=== PATIENT | female | born 1990 | race Caucasian/White ===

== ENCOUNTER 2019-05-29 14:17 | Emergency (ER) | payer OTHER, MEDICAID, SELFPAY ==
[2019-05-29 14:54] VITALS: BP 96/58; PULSE 69; RESP 18; TEMP 36.8; O2SAT 94
--- NOTE | 2019-05-29 14:59 | DI.US.S_ITS ---
PROCEDURE: US OB <= 14 WEEKS FETUS INDICATIONS: RT PELVIC PAIN, OUTSIDE/PRIOR DATING DATA: Last menstrual period (LMP): 04/01/2019. LMP-based estimated date of delivery (DORI): 12/08/2019. First dating scan (date and location): 05/29/2019. Estimated date of delivery (DORI) from first dating scan: 01/08/2020. TECHNIQUE: Real-time scanning was performed of the fetus and maternal pelvic organs, with image documentation. COMPARISON: None. FINDINGS: Embryo: Riggins living intrauterine . Stephenson-rump length of 1.6 cm. Gestational age 8 weeks 0/7 days. heart rate 165 beats per minute. A yolk sac is seen. No neyda-gestational hemorrhage demonstrated. Measurement variability in dating: +/- 4 weeks by LMP, +/- 7 days by mean sac diameter (use before 6 weeks gestation if crown-rump length not able to be measured), +/- 5 days by crown-rump length (up to 8 weeks 6 days gestation), +/- 7 days by crown-rump length (up to 13 weeks 6 days gestation). Maternal organs: Right ovary is normal in size and appearance. Left ovary is not identified. Limited images through the kidneys demonstrate no hydronephrosis. Cervical length 3.3 cm. Normal uterus. Appendix is not identified. 2 small lymph nodes in the right lower quadrant which are within normal limits. IMPRESSION: 1. Single living intrauterine at 8 weeks 0/7 days based on today's crown-rump length. heart rate 165 bpm. 2. No neyda-gestational hemorrhage demonstrated. No free fluid. 3. Appendix is not identified. No hydronephrosis. Dictated by: Jadon Mccall M.D. on 05/29/2019 at 16:15 Approved by: Jadon Mccall M.D. on 05/29/2019 at 16:21
[2019-05-29 16:12] LABS: Add Manual Diff / Slide Review NO; Basophils Absolute Auto 100 /uL (0-100); Basophils Percent Auto 0.7 % (0-2); Eosinophils Absolute Auto 0 /uL (0-450); Eosinophils Percent Auto 0.4 % (2-4); Hematocrit 40.2 % (36-46); Hemoglobin 14.1 g/dL (12.0-16.0); Lymphocytes Absolute Auto 2000 /uL (1100-4500); Lymphocytes Percent Auto 22.9 % (25-40); Mean Corpuscular Hemoglobin 32.1 PG (26-34); Mean Corpuscular Volume 91.7 fL (80-100); Monocytes Absolute Auto 800 /uL (0-900); Monocytes Percent Auto 9.2 % (3-14); Neutrophils Absolute Auto 6000 /uL (1500-7000); Neutrophils Percent Auto 66.8 % (50-75); Platelet Count 208 X10^3/uL (150-400); Red Blood Cell Count 4.39 X10^6/uL (4.0-5.2); Red Cell Distribution Width 12.7 % (11.6-14.8); White Blood Cell Count 8.9 X10^3/uL (4.5-11.0)
[2019-05-29 16:18] LABS: Alanine Aminotransferase 25 IU/L (9-52); Albumin 4.3 g/dL (3.5-5.0); Albumin Globulin Ratio 1.4 (1.0-2.8); Alkaline Phosphatase 50 U/L (38-126); Aspartate Aminotransferase 24 IU/L (14-36); BUN Creatinine Ratio 27.5 (6-22); Bilirubin Total 0.5 mg/dL (0.2-1.3); Blood Urea Nitrogen 11 mg/dL (7-17); Calcium 9.8 mg/dL (8.4-10.2); Carbon Dioxide 26 mmol/L (22-32); Chloride 100 mmol/L (98-107); Estimated Glomerular Filt Rate > 60.0 mL/min (>60); Globulin 3.1 g/dL (1.7-4.1); Glucose 80 mg/dL (70-100); HEMOLYSIS < 15 (0-50); Potassium 4.1 mmol/L (3.4-5.1); Sodium 135 mmol/L (137-145); Total Protein 7.4 g/dL (6.3-8.2)
[2019-05-29 16:49] LABS: Bacteria Urine None Seen; RBC Urine None Seen (0-5/HPF)
[2019-05-29 16:59] LABS: HCG Quantitative /Beta subunit 141950 mIU/mL
[2019-05-29 17:00] LABS: Culture Indicated Urine Cult Not Indicated; Mucus Urine 3+ (Negative); Squamous Epithelial Cell Urine 0-1 /HPF (0-5/HPF); WBC Urine 0-1/HPF (0-5/HPF)
[2019-05-29] MEDS: ACETAMINOPHEN 325 MG TABLET 975 MG PO (17:22)
[2019-05-29 17:23] VITALS: BP 110/61; PULSE 74; RESP 16; TEMP 35.8; O2SAT 99
--- NOTE | 2019-05-29 19:10 | ED.PREGNANCY ---
HPI - [facility] - Last Filed: 05/29/19 19:14> General Chief complaint: OB/Uterine Contractions Stated complaint: 7-8 wks preg. abd pain, low back pain Time Seen by Provider: 05/29/19 16:37 Source: patient Mode of arrival: ambulatory Limitations: no limitations History of Present Illness HPI Narrative: The patient is a 29-year-old female she is 7-8 weeks presents with a chief complaint of lower back pain. She complains of slight abdominal cramping. She denies any vaginal bleeding, urgency frequency dysuria. She denies any trauma. She states that she has taken a few doses of ibuprofen, which I recommended she not do anymore, for the pain with no effect. She has not taken anything today. She states that the pain has been ongoing for several weeks. She denies any chest pain shortness of breath or fevers. She denies any vomiting or diarrhea. She states she thinks everything is okay, she just wants to make sure. She states she has planned follow-up with an OBGYN shortly. Review of Systems [facility] Last Filed: 05/29/19 19:14> Review of Systems GENERAL: Denies chills, fatigue, malaise, fever, sweats. HEENT: Denies sinus pain, ear pain, sore throat, difficulty swallowing, dizziness. RESPIRATORY: Denies dyspnea, cough, wheezing, hemoptysis, sputum. CARDIOVASCULAR: Denies chest pain, palpitations, orthopnea, edema, GASTROINTESTINAL: Denies nausea, vomiting, abdominal pain, diarrhea, constipation, melena. : Denies dysuria, frequency, incontinence, hematuria, urinary retention. MUSCULOSKELETAL: See HPI SKIN: Denies rash, skin lesions, or other NEUROLOGIC: Denies weakness, headache, numbness, change in speech, confusion, seizures, incoordination. PSYCHIATRIC: No concerning psychosocial issues. 12 point review of systems is negative except for those stated above Exam <[facility] - Last Filed: 05/29/19 19:14> Narrative Exam Narrative: GENERAL: This is a well-nourished, well-developed patient, acute distress HEAD: Atraumatic. Normocephalic. No temporal or scalp tenderness. EYES: Pupils equal round and reactive. Extraocular motions intact. No scleral icterus. No injection or drainage. ENT: Nose without bleeding, purulent drainage or septal hematoma. Throat without erythema, tonsillar hypertrophy or exudate. Uvula midline. Airway patent. NECK: Trachea midline. No JVD or lymphadenopathy. Supple, nontender, no meningeal signs. CARDIOVASCULAR: Regular rate and rhythm without murmurs, gallops, or rubs. RESPIRATORY: Clear to auscultation. Breath sounds equal bilaterally. No wheezes, rales, or rhonchi. No cough. No increased respiratory effort. No accessory muscle use. GASTROINTESTINAL: Abdomen soft, non-tender, nondistended. No hepato-splenomegaly, or palpable masses. No guarding. Active bowel sounds all 4 quadrants. EXTREMITIES: No clubbing, cyanosis, or edema. No joint tenderness, effusion, or edema noted. BACK: Nontender without deformity or crepitance. No flank tenderness. NEURO: AOx3. SKIN: No rash or erythema. Initial Vital Signs Initial Vital Signs: Vital Signs Temperature 98.3 F 05/29/19 14:54 Pulse Rate 69 05/29/19 14:54 Respiratory Rate 18 05/29/19 14:54 Blood Pressure 96/58 L 05/29/19 14:54 Pulse Oximetry 94 05/29/19 14:54 <DO Ronny Estrada Last Filed: 05/30/19 07:49> Initial Vital Signs Initial Vital Signs: Vital Signs Temperature 98.3 F 05/29/19 14:54 Pulse Rate 69 05/29/19 14:54 Respiratory Rate 18 05/29/19 14:54 Blood Pressure 96/58 L 05/29/19 14:54 Pulse Oximetry 94 05/29/19 14:54 Course <PATRICIA Odom-[facility]SI - Last Filed: 05/29/19 19:14> Orders Ordered: Discontinued Medications Acetaminophen (Tylenol) 975 mg PO NOW ONE Stop: 05/29/19 16:55 Last Admin: 05/29/19 17:22 Dose: 975 mg Vital Signs - 8 hr 05/29/19 14:54 05/29/19 17:23 Temperature 98.3 F 96.4 F L Pulse Rate 69 74 Respiratory Rate 18 16 Blood Pressure 96/58 L Blood Pressure [Left Arm] 110/61 Pulse Oximetry 94 99 <DO Ronny Estrada Filed: 05/30/19 07:49> Orders Ordered: Discontinued Medications Acetaminophen (Tylenol) 975 mg PO NOW ONE Stop: 05/29/19 16:55 Last Admin: 05/29/19 17:22 Dose: 975 mg Vital Signs - 8 hr 05/29/19 14:54 05/29/19 17:23 Temperature 98.3 F 96.4 F L Pulse Rate 69 74 Respiratory Rate 18 16 Blood Pressure 96/58 L Blood Pressure [Left Arm] 110/61 Pulse Oximetry 94 99 MDM - OB/Uterine Contractions <CALI Odom - Last Filed: 05/29/19 19:14> Lab Data Result diagrams: 05/29/19 16:00 05/29/19 16:00 Lab Results 05/29/19 05/29/19 05/29/19 Range/Units 16:00 16:00 16:00 WBC 8.9 (4.5-11.0) X10^3/uL RBC 4.39 (4.0-5.2) X10^6/uL Hgb 14.1 (12.0-16.0) g/dL Hct 40.2 (36-46) % MCV 91.7 (80-100) fL MCH 32.1 (26-34) PG MCHC 35.0 (30-36) % RDW 12.7 (11.6-14.8) % Plt Count 208 (150-400) X10^3/uL Neut % (Auto) 66.8 (50-75) % Lymph % (Auto) 22.9 L (25-40) % [place] % (Auto) 9.2 (3-14) % Eos % (Auto) 0.4 L (2-4) % Baso % (Auto) 0.7 (0-2) % Neut # (Auto) 6000 (1906-4174) /uL Lymph # (Auto) 2000 (6395-4247) /uL [place] # (Auto) 800 (0-900) /uL Eos # (Auto) 0 (0-450) /uL Baso # (Auto) 100 (0-100) /uL Sodium 135 L (137-145) mmol/L Potassium 4.1 (3.4-5.1) mmol/L Chloride 100 (98-107) mmol/L Carbon Dioxide 26 (22-32) mmol/L BUN 11 (7-17) mg/dL Creatinine 0.40 L (0.52-1.04) mg/dL Estimated GFR > 60.0 (>60) mL/min BUN/Creatinine Ratio 27.5 H (6-22) Glucose 80 (70-100) mg/dL Calcium 9.8 (8.4-10.2) mg/dL Total Bilirubin 0.5 (0.2-1.3) mg/dL AST 24 (14-36) IU/L ALT 25 (9-52) IU/L Alkaline Phosphatase 50 (38-126) U/L Total Protein 7.4 (6.3-8.2) g/dL Albumin 4.3 (3.5-5.0) g/dL Globulin 3.1 (1.7-4.1) g/dL Albumin/Globulin Ratio 1.4 (1.0-2.8) HCG, Quant 297345 mIU/mL Urine RBC (0-5/HPF) Urine WBC (0-5/HPF) Ur Squamous Epith Cells (0-5/HPF) Urine Bacteria (None) Urine Mucus (Negative) Ur Culture Indicated? Blood Type O Positive 05/29/19 Range/Units 16:30 WBC (4.5-11.0) X10^3/uL RBC (4.0-5.2) X10^6/uL Hgb (12.0-16.0) g/dL Hct (36-46) % MCV (80-100) fL MCH (26-34) PG MCHC (30-36) % RDW (11.6-14.8) % Plt Count (150-400) X10^3/uL Neut % (Auto) (50-75) % Lymph % (Auto) (25-40) % [place] % (Auto) (3-14) % Eos % (Auto) (2-4) % Baso % (Auto) (0-2) % Neut # (Auto) (9943-6616) /uL Lymph # (Auto) (6712-3666) /uL [place] # (Auto) (0-900) /uL Eos # (Auto) (0-450) /uL Baso # (Auto) (0-100) /uL Sodium (137-145) mmol/L Potassium (3.4-5.1) mmol/L Chloride (98-107) mmol/L Carbon Dioxide (22-32) mmol/L BUN (7-17) mg/dL Creatinine (0.52-1.04) mg/dL Estimated GFR (>60) mL/min BUN/Creatinine Ratio (6-22) Glucose (70-100) mg/dL Calcium (8.4-10.2) mg/dL Total Bilirubin (0.2-1.3) mg/dL AST (14-36) IU/L ALT (9-52) IU/L Alkaline Phosphatase (38-126) U/L Total Protein (6.3-8.2) g/dL Albumin (3.5-5.0) g/dL Globulin (1.7-4.1) g/dL Albumin/Globulin Ratio (1.0-2.8) HCG, Quant mIU/mL Urine RBC None seen (0-5/HPF) Urine WBC 0-1/hpf (0-5/HPF) Ur Squamous Epith Cells 0-1 /hpf (0-5/HPF) Urine Bacteria None seen (None) Urine Mucus 3+ H (Negative) Ur Culture Indicated? Cult not indicated Blood Type Urine Dip Bedside Urine Glucose Negative Bedside Urine Bilirubin - Negative Bedside Urine Ketone +/- 5 Urine Specific [place] 1.030 Bedside Urine Occult Blood - Negative Bedside Urine pH 6.0 Bedside Urine Protein +/- 15 Bedside Urine Urobilinogen - Negative Bedside Urine Nitrite - Negative Bedside Urine Leukocytes - Negative Esterase MDM Narrative Medical decision making narrative: The patient is a 29-year-old female who is 8 weeks who presents with a chief complaint of lower back pain. She has not taken anything other than few doses of ibuprofen at home for the pain, which I encouraged her to do. Encouraged to take Tylenol instead. The patient has a normal urinalysis, overall benign labs and a non acute abdominal exam. We discussed conservative measures such as Tylenol, heat and/or ice and encouraged follow-up with PCP. Discussed coming back to the ER for any acute concerns such as severe vaginal bleeding etc. Patient has no questions or concerns upon discharge. She was given Tylenol in the emergency department. <Ilana Cross, - Last Filed: 05/30/19 07:49> Lab Data Lab Results 05/29/19 05/29/19 05/29/19 Range/Units 16:00 16:00 16:00 WBC 8.9 (4.5-11.0) X10^3/uL RBC 4.39 (4.0-5.2) X10^6/uL Hgb 14.1 (12.0-16.0) g/dL Hct 40.2 (36-46) % MCV 91.7 (80-100) fL MCH 32.1 (26-34) PG MCHC 35.0 (30-36) % RDW 12.7 (11.6-14.8) % Plt Count 208 (150-400) X10^3/uL Neut % (Auto) 66.8 (50-75) % Lymph % (Auto) 22.9 L (25-40) % [place] % (Auto) 9.2 (3-14) % Eos % (Auto) 0.4 L (2-4) % Baso % (Auto) 0.7 (0-2) % Neut # (Auto) 6000 (7357-9658) /uL Lymph # (Auto) 2000 (1049-6838) /uL [place] # (Auto) 800 (0-900) /uL Eos # (Auto) 0 (0-450) /uL Baso # (Auto) 100 (0-100) /uL Sodium 135 L (137-145) mmol/L Potassium 4.1 (3.4-5.1) mmol/L Chloride 100 (98-107) mmol/L Carbon Dioxide 26 (22-32) mmol/L BUN 11 (7-17) mg/dL Creatinine 0.40 L (0.52-1.04) mg/dL Estimated GFR > 60.0 (>60) mL/min BUN/Creatinine Ratio 27.5 H (6-22) Glucose 80 (70-100) mg/dL Calcium 9.8 (8.4-10.2) mg/dL Total Bilirubin 0.5 (0.2-1.3) mg/dL AST 24 (14-36) IU/L ALT 25 (9-52) IU/L Alkaline Phosphatase 50 (38-126) U/L Total Protein 7.4 (6.3-8.2) g/dL Albumin 4.3 (3.5-5.0) g/dL Globulin 3.1 (1.7-4.1) g/dL Albumin/Globulin Ratio 1.4 (1.0-2.8) HCG, Quant 864646 mIU/mL Urine RBC (0-5/HPF) Urine WBC (0-5/HPF) Ur Squamous Epith Cells (0-5/HPF) Urine Bacteria (None) Urine Mucus (Negative) Ur Culture Indicated? Blood Type O Positive 05/29/19 Range/Units 16:30 WBC (4.5-11.0) X10^3/uL RBC (4.0-5.2) X10^6/uL Hgb (12.0-16.0) g/dL Hct (36-46) % MCV (80-100) fL MCH (26-34) PG MCHC (30-36) % RDW (11.6-14.8) % Plt Count (150-400) X10^3/uL Neut % (Auto) (50-75) % Lymph % (Auto) (25-40) % [place] % (Auto) (3-14) % Eos % (Auto) (2-4) % Baso % (Auto) (0-2) % Neut # (Auto) (4338-6017) /uL Lymph # (Auto) (2068-4143) /uL [place] # (Auto) (0-900) /uL Eos # (Auto) (0-450) /uL Baso # (Auto) (0-100) /uL Sodium (137-145) mmol/L Potassium (3.4-5.1) mmol/L Chloride (98-107) mmol/L Carbon Dioxide (22-32) mmol/L BUN (7-17) mg/dL Creatinine (0.52-1.04) mg/dL Estimated GFR (>60) mL/min BUN/Creatinine Ratio (6-22) Glucose (70-100) mg/dL Calcium (8.4-10.2) mg/dL Total Bilirubin (0.2-1.3) mg/dL AST (14-36) IU/L ALT (9-52) IU/L Alkaline Phosphatase (38-126) U/L Total Protein (6.3-8.2) g/dL Albumin (3.5-5.0) g/dL Globulin (1.7-4.1) g/dL Albumin/Globulin Ratio (1.0-2.8) HCG, Quant mIU/mL Urine RBC None seen (0-5/HPF) Urine WBC 0-1/hpf (0-5/HPF) Ur Squamous Epith Cells 0-1 /hpf (0-5/HPF) Urine Bacteria None seen (None) Urine Mucus 3+ H (Negative) Ur Culture Indicated? Cult not indicated Blood Type Urine Dip Bedside Urine Glucose Negative Bedside Urine Bilirubin - Negative Bedside Urine Ketone +/- 5 Urine Specific [place] 1.030 Bedside Urine Occult Blood - Negative Bedside Urine pH 6.0 Bedside Urine Protein +/- 15 Bedside Urine Urobilinogen - Negative Bedside Urine Nitrite - Negative Bedside Urine Leukocytes - Negative Esterase Discharge Plan Departure Patient Disposition: Home Clinical Impression: Low back pain Qualifiers: Chronicity: acute Back pain laterality: bilateral Sciatica presence: without sciatica Qualified Code(s): M54.5 - Low back pain Discharge Date/Time: 05/29/19 17:33 Interventions: ED Discharge Assessment Last Done: 05/29/19 17:32 Instructions: DI for Low Back Pain, DI for Abdominal Pain -- Early Activity Restrictions/Additional Instructions: Your urinalysis was normal today. Your ultrasound was also normal. I suggest conservative measures such as Tylenol, ice and/ or heat. Please follow up with primary care provider. Come back to emergency department for any acute concerns such as incontinence bowel, incontinence of bladder numbness in her groin, severe vaginal bleeding etc Referrals: Sara Broussard MD [Primary Care Provider] - <Ilana Cross DO - Last Filed: 05/30/19 07:49> Cosign ED Attending Keisha Attestation: I was immediately available in the department for consultation. Documentation has been reviewed. I agree with assessment and plan.
== END 2019-05-29 17:33 | disposition home or self-care (01) ==
PROVIDERS: Emergency Medicine; Emergency Provider Nurse Practitioner Family; PCP Family Medicine
DX: M54.5 Low back pain (principal)
CPT/HCPCS: 36415; 76801; 80053; 81003; 81015; 84702; 85025; 86900; 86901; 99282; 99284

== ENCOUNTER → 2019-08-11 12:16 | Outpatient (CLI) | payer OTHER, MEDICAID, SELFPAY ==
--- NOTE | 2019-08-11 | DI.US.S_ITS ---
PROCEDURE: US OB >= 14 WEEKS FETUS INDICATIONS: 20 WK ANATOMICAL SCAN OUTSIDE/PRIOR DATING DATA: Last menstrual period (LMP): 04/01/2019. LMP-based estimated date of delivery (DORI): 12/08/2019. First dating scan (date and location): 05/29/2019. Estimated date of delivery (DORI) from first dating scan: 01/08/2020. TECHNIQUE: Real-time scanning was performed of the fetus, with image documentation and biometric measurements. Endovaginal scanning: No COMPARISON: [facility], OB <= 14 WEEKS FETUS, 05/29/2019, 15:12. FINDINGS: General: A single living intrauterine gestation is present. Presentation: Vertex. Placenta: Placental position is posterior, without previa. Amniotic fluid index: 11.3 cm, normal range is 5-24 cm. heart rate: 147 beats per minute. Maternal cervical canal: 3.5 cm long. Normal lower limit is 2.5 cm. biometrics: Biparietal diameter: 18 weeks 6 days Head circumference: 18 weeks 4 days Abdominal circumference: 18 weeks 5 days Femur length: 18 weeks 4 days Estimated gestational age from initial scan: 18 weeks 4 days Composite gestational age from present scan: 18 weeks 4 days Estimated weight and percentile: 250 g; 50th percentile Measurement variability for biometric dating: +/- 7 days from 14 weeks to 15 weeks 6 days gestation, +/- 10 days from 16 weeks to 21 weeks 6 days gestation, +/- 2 weeks from 22 weeks to 27 weeks 6 days gestation, +/- 3 weeks for 28 weeks gestation or later. weight reference: 4500 g or EFW >90/95% is considered macrosomia or large for gestational age. EFW <10% is small for gestational age. EFW 5% or less is considered intra-uterine growth restriction. Anatomic survey: Neuro: Ventricles are non-dilated at less than 10 mm. Cisterna magna is normal at 3-11 mm. Cerebellum is normal in size and morphology. Nuchal skin fold: Normal at less than 6 mm between 14-21 weeks gestational age. Face: Not well-visualized. Spine: No evidence for spina bifida. Heart: Not well-visualized. Diaphragm: Not well-visualized. Stomach: Left-sided stomach is present. Kidneys: No hydronephrosis. Normal is less than 5 mm in 2nd trimester, less than 7 mm in 3rd trimester. Cord: 2-vessel cord has orthotopic insertion. Bladder: Normal in size. Extremities: All 4 extremities identified. IMPRESSION: 1. Riggins living intrauterine at 18 weeks 4/7 days based on today's ultrasound. This is concordant with the prior ultrasound. 2. Normal placenta and amniotic fluid. 3. A 2 vessel umbilical cord is present. Limited anatomic assessment. face, heart and diaphragm are not well seen. Followup ultrasound recommended. Dictated by: Volodymyr Snell [facility] Interpreted: Jadon Mccall MD on 08/11/2019 at 14:05 Approved by: Jadon Mccall M.D. on 08/11/2019 at 15:37
== END ==
PROVIDERS: PCP Family Medicine; Visit Provider Family Medicine
DX: Z36.89 Encounter for other specified antenatal screening (principal); Z3A.18 18 weeks gestation of pregnancy
CPT/HCPCS: 76811

== ENCOUNTER → 2019-08-28 11:40 | Outpatient (CLI) | payer OTHER, MEDICAID, SELFPAY ==
--- NOTE | 2019-08-28 | DI.US.S_ITS ---
PROCEDURE: US OB FOLLOW UP INDICATIONS: REEVALUATE FACE, HEART AND DIAPHRAGM OUTSIDE/PRIOR DATING DATA: Last menstrual period (LMP): 04/01/2019. LMP-based estimated date of delivery (DORI): 12/08/2019. First dating scan (date and location): 05/29/2019. Estimated date of delivery (DORI) from first dating scan: 01/08/2020. TECHNIQUE: Real-time scanning was performed of the fetus, with image documentation and biometric measurements. COMPARISON: [facility], OB >= 14 WEEKS FETUS, 08/11/2019, 12:43. FINDINGS: General: A single living intrauterine gestation is present. Presentation: Breech. Placenta: Placental position is posterior, without previa. Amniotic fluid index: 14.1 cm, normal range is 5-24 cm. heart rate: 141 beats per minute. Maternal cervical canal: 3.4 cm long. Normal lower limit is 2.5 cm. Normal appearance of the diaphragm, face, 4 chamber heart and cardiac outflow tracts. IMPRESSION: 1. Single living IUP redemonstrated and today's exam demonstrate a normal appearance of the diaphragm, face, 4 chamber heart and cardiac outflow tract. Dictated by: Volodymyr BLANCHARD Interpreted: Madi Scott MD on 08/28/2019 at 15:42 Approved by: Madi Scott M.D. on 08/28/2019 at 16:41
== END ==
PROVIDERS: PCP Family Medicine; Visit Provider Family Medicine
DX: Z36.2 Encounter for other antenatal screening follow-up (principal)
CPT/HCPCS: 76816

== ENCOUNTER → 2019-09-18 13:51 | Outpatient (CLI) | payer OTHER, MEDICAID, SELFPAY ==
--- NOTE | 2019-09-18 | DI.US.S_ITS ---
PROCEDURE: US OB LIMITED INDICATIONS: UTERINE PAIN SIZE GREATER THAN DATES OUTSIDE/PRIOR DATING DATA: Last menstrual period (LMP): 04/01/2019. LMP-based estimated date of delivery (DORI): 12/08/2019. First dating scan (date and location): 05/29/2019. Estimated date of delivery (DORI) from first dating scan: 01/08/2020. TECHNIQUE: Real-time scanning was performed of the fetus, with image documentation and biometric measurements. COMPARISON: None. FINDINGS: General: A single living intrauterine gestation is present. Presentation: Vertex. Placenta: Placental position is posterior, without previa. Amniotic fluid index: 21 cm, normal range is 5-24 cm. heart rate: 155 beats per minute. Maternal cervical canal: 3.4 cm long. Normal lower limit is 2.5 cm. biometrics: Biparietal diameter: 24 weeks 2 days Head circumference: 23 weeks 6 days Abdominal circumference: 24 weeks Femur length: 25 weeks Estimated gestational age from initial scan: 24 weeks 0 days Composite gestational age from present scan: 24 weeks 3 days Estimated weight and percentile: 688 g, 58 percentile Measurement variability for biometric dating: +/- 7 days from 14 weeks to 15 weeks 6 days gestation, +/- 10 days from 16 weeks to 21 weeks 6 days gestation, +/- 2 weeks from 22 weeks to 27 weeks 6 days gestation, +/- 3 weeks for 28 weeks gestation or later. weight reference: 4500 g or EFW >90/95% is considered macrosomia or large for gestational age. EFW <10% is small for gestational age. EFW 5% or less is considered intra-uterine growth restriction. Other: Not applicable. IMPRESSION: 1. Single living IUP redemonstrated and interval growth is normal. Dictated by: Volodymyr BLANCHARD Interpreted: Emilio Bansal MD on 09/18/2019 at 16:43 Approved by: Emilio Bansal M.D. on 09/19/2019 at 9:11
== END ==
PROVIDERS: PCP Family Medicine; Visit Provider Family Medicine
DX: Z36.88 Encounter for antenatal screening for fetal macrosomia (principal); O26.892 Other specified pregnancy related conditions, second trimester; N94.89 Other specified conditions associated with female genital organs and menstrual cycle; Z3A.24 24 weeks gestation of pregnancy
CPT/HCPCS: 76815

== ENCOUNTER 2019-11-02 10:55 | Outpatient (CLI) | payer OTHER, MEDICAID, SELFPAY | END 2019-11-02 11:53 | disposition home or self-care (01) | LOC: LABOR 11:22 → OB 11-03 09:19 | PROVIDERS: PCP Family Medicine; Visit Provider Family Medicine | DX: O43.893 Other placental disorders, third trimester (principal); Z3A.30 30 weeks gestation of pregnancy | CPT/HCPCS: 59025; G0378; G0379 ==

== ENCOUNTER 2019-11-14 16:32 | Outpatient (CLI) | payer OTHER, MEDICAID, SELFPAY ==
[2019-11-14 17:50] LABS: RBC Urine None Seen (0-5/HPF); WBC Urine None Seen (0-5/HPF)
[2019-11-14 17:53] LABS: Appearance Urine UA CLEAR; Bilirubin Urine UA NEGATIVE (NEGATIVE); Color Urine UA YELLOW; Glucose Urine UA NEGATIVE (Negative); Ketones Urine UA NEGATIVE (NEGATIVE); Leukocyte Esterase Urine UA NEGATIVE (NEGATIVE); Nitrite Urine UA NEGATIVE (Negative); Occult Blood Urine UA NEGATIVE (Negative); Protein Urine UA NEGATIVE (Negative); Specific Gravity Urine UA <=1.005 (1.000-1.035); Urobilinogen Urine UA 0.2 E.U./dL (0.2)
[2019-11-14 18:03] LABS: pH Urine UA 6.5 (4.5-8.0)
[2019-11-14 18:04] LABS: Bacteria Urine Occasional (0-1); Culture Indicated Urine Cult Not Indicated; Squamous Epithelial Cell Urine 0-1 /HPF (0-5/HPF)
== END 2019-11-14 18:00 | disposition home or self-care (01) ==
LOC: OB 11-15 12:57
PROVIDERS: PCP Family Medicine; Referring Provider Family Medicine; Visit Provider Family Medicine
DX: O47.03 False labor before 37 completed weeks of gestation, third trimester (principal); O26.893 Other specified pregnancy related conditions, third trimester; Z3A.32 32 weeks gestation of pregnancy
CPT/HCPCS: 59025; 81001; G0378; G0379

== ENCOUNTER 2019-11-23 09:28 | Outpatient (CLI) | payer OTHER, MEDICAID, SELFPAY | END 2019-11-23 10:36 | disposition home or self-care (01) | LOC: LABOR 10:23 → OB 11-24 10:20 | PROVIDERS: PCP Family Medicine; Referring Provider Family Medicine; Visit Provider Family Medicine | DX: O35.8XX0 Maternal care for other (suspected) fetal abnormality and damage, not applicable or unspecified (principal); O99.333 Smoking (tobacco) complicating pregnancy, third trimester; Z3A.33 33 weeks gestation of pregnancy | CPT/HCPCS: 59025; G0378; G0379 ==

== ENCOUNTER 2019-11-28 11:46 | Outpatient (CLI) | payer OTHER, MEDICAID, SELFPAY ==
--- NOTE | 2019-11-28 12:08 | DI.US.S_ITS ---
PROCEDURE: OB LIMITED INDICATIONS: YONY, SIZE, AND HEALTH OF PLACENTA OUTSIDE/PRIOR DATING DATA: Last menstrual period (LMP): . LMP-based estimated date of delivery (DORI): 01/06/20. First dating scan (date and location): 05/29/19. Estimated date of delivery (DORI) from first dating scan: 01/08/20. TECHNIQUE: Real-time scanning was performed of the fetus, with image documentation. Endovaginal scanning: Not needed COMPARISON: [facility], OB FOLLOW UP, 08/28/2019, 12:07. [facility] OB >= 14 WEEKS FETUS, 08/11/2019, 12:43. [facility] OB <= 14 WEEKS FETUS, 05/29/2019, 15:12. [facility] OB LIMITED, 09/18/2019, 14:12. FINDINGS: A single living intrauterine gestation is present. Presentation: Vertex Placenta: Placental position is posterior fundal, without previa. Amniotic fluid index: 19.7 cm, normal range is 5-24 cm. heart rate: 153 beats per minute. Estimated gestational age from initial scan: 34 weeks 1 day. Next biometry is internally consistent with a current gestational age of 34 weeks 1 day with weight 2311 g, at the 38th percentile for current gestational age. BPD 8.5 cm, 34 weeks 1 day. Head circumference 30.9 cm, 34 weeks 4 days. Abdominal circumference 29.5 cm, 33 weeks 3 days. Femur length 6.7 cm, 34 weeks 4 days. IMPRESSION: Single living intrauterine gestation with appropriate interval growth and no anomaly identified. The delivery date is projected to be centered on 01/08/20. Dictated by: Emilio Bansal M.D. on 11/28/2019 at 13:04 Approved by: Emilio Bansal M.D. on 11/28/2019 at 13:07
== END 2019-11-28 14:00 | disposition home or self-care (01) ==
LOC: LABOR 13:28 → OB 11-29 10:32
PROVIDERS: PCP Family Medicine; Referring Provider Family Medicine; Visit Provider Family Medicine
DX: O26.893 Other specified pregnancy related conditions, third trimester (principal); R10.30 Lower abdominal pain, unspecified; O35.8XX0 Maternal care for other (suspected) fetal abnormality and damage, not applicable or unspecified; O99.333 Smoking (tobacco) complicating pregnancy, third trimester; Z3A.34 34 weeks gestation of pregnancy
CPT/HCPCS: 59025; 76815; G0378; G0379

== ENCOUNTER 2019-12-04 09:20 | Outpatient (CLI) | payer OTHER, MEDICAID, SELFPAY | END 2019-12-04 10:41 | disposition home or self-care (01) | LOC: LABOR 10:33 → OB 16:50 | PROVIDERS: PCP Family Medicine; Referring Provider Family Medicine; Visit Provider Family Medicine | DX: O35.8XX0 Maternal care for other (suspected) fetal abnormality and damage, not applicable or unspecified (principal); O99.333 Smoking (tobacco) complicating pregnancy, third trimester; Z3A.35 35 weeks gestation of pregnancy | CPT/HCPCS: 59025; G0378; G0379 ==

== ENCOUNTER 2019-12-10 16:54 | Outpatient (CLI) | payer OTHER, MEDICAID, SELFPAY | END 2019-12-10 18:45 | disposition home or self-care (01) | LOC: OB 12-11 10:50 | PROVIDERS: PCP Family Medicine; Referring Provider Student in an Organized Health Care Education/Training Program; Visit Provider Student in an Organized Health Care Education/Training Program | DX: O35.8XX0 Maternal care for other (suspected) fetal abnormality and damage, not applicable or unspecified (principal); O47.03 False labor before 37 completed weeks of gestation, third trimester; O99.333 Smoking (tobacco) complicating pregnancy, third trimester; N89.8 Other specified noninflammatory disorders of vagina; Z3A.36 36 weeks gestation of pregnancy | CPT/HCPCS: 59025; 84112; G0378; G0379 ==

== ENCOUNTER → 2019-12-12 14:47 | Outpatient (ROUT) | payer OTHER, MEDICAID, SELFPAY | PROVIDERS: PCP Family Medicine; Visit Provider Family Medicine | DX: Z34.80 Encounter for supervision of other normal pregnancy, unspecified trimester (principal) | CPT/HCPCS: 87081 ==

== ENCOUNTER 2019-12-19 12:56 | Outpatient (CLI) | payer OTHER, MEDICAID, SELFPAY | END 2019-12-19 13:57 | disposition home or self-care (01) | LOC: OB 12-21 08:22 | PROVIDERS: PCP Family Medicine; Referring Provider Family Medicine; Visit Provider Family Medicine | DX: O35.8XX0 Maternal care for other (suspected) fetal abnormality and damage, not applicable or unspecified (principal); O99.333 Smoking (tobacco) complicating pregnancy, third trimester; Z3A.37 37 weeks gestation of pregnancy | CPT/HCPCS: 59025; 76815; G0378; G0379 ==

== ENCOUNTER → 2019-12-19 12:58 | Outpatient (CLI) | payer OTHER, MEDICAID, SELFPAY ==
--- NOTE | 2019-12-19 | DI.US.S_ITS ---
PROCEDURE: US OB LIMITED INDICATIONS: 2V CORD OUTSIDE/PRIOR DATING DATA: Last menstrual period (LMP): . LMP-based estimated date of delivery (DORI): 01/06/20. First dating scan (date and location): 05/29/19. Estimated date of delivery (DORI) from first dating scan: 01/08/20. TECHNIQUE: Real-time scanning was performed of the fetus, with image documentation and biometric measurements. Endovaginal scanning: No COMPARISON: [facility], OB LIMITED, 11/28/2019, 12:34. FINDINGS: General: A single living intrauterine gestation is present. Presentation: Vertex. Placenta: Placental position is posterior fundal, without previa. Amniotic fluid index: 14.3 cm, normal range is 5-24 cm. heart rate: 155 beats per minute. Maternal cervical canal: Not well-seen. biometrics: Biparietal diameter: 35 weeks 2 days Head circumference: 34 weeks 3 days Abdominal circumference: 36 weeks 4 days Femur length: 38 weeks 2 days Estimated gestational age from initial scan: 37 weeks 1 day Composite gestational age from present scan: 36 weeks 1 day Estimated weight and percentile: 2991 g, 43rd percentile Measurement variability for biometric dating: +/- 7 days from 14 weeks to 15 weeks 6 days gestation, +/- 10 days from 16 weeks to 21 weeks 6 days gestation, +/- 2 weeks from 22 weeks to 27 weeks 6 days gestation, +/- 3 weeks for 28 weeks gestation or later. weight reference: 4500 g or EFW >90/95% is considered macrosomia or large for gestational age. EFW <10% is small for gestational age. EFW 5% or less is considered intra-uterine growth restriction. Other: Not applicable. IMPRESSION: Normal interval growth. Dictated by: Volodymyr BLANCHARD Interpreted: Emilio Bansal MD on 12/19/2019 at 16:50 Approved by: Emilio Bansal M.D. on 12/19/2019 at 18:22
== END ==
PROVIDERS: PCP Family Medicine; Referring Provider Family Medicine; Visit Provider Family Medicine
DX: Q27.0 Congenital absence and hypoplasia of umbilical artery (principal); Z3A.36 36 weeks gestation of pregnancy
CPT/HCPCS: 76815

== ENCOUNTER 2019-12-27 09:12 | Outpatient (CLI) | payer OTHER, MEDICAID, SELFPAY | END 2019-12-27 10:00 | disposition home or self-care (01) | LOC: LABOR 09:28 → OB 12-28 14:34 | PROVIDERS: PCP Family Medicine; Referring Provider Family Medicine; Visit Provider Family Medicine | DX: O35.8XX0 Maternal care for other (suspected) fetal abnormality and damage, not applicable or unspecified (principal); Z3A.38 38 weeks gestation of pregnancy | CPT/HCPCS: 59025; G0378; G0379 ==

== ENCOUNTER 2020-01-02 10:38 | Outpatient (CLI) | payer OTHER, MEDICAID, SELFPAY | END 2020-01-02 11:25 | disposition home or self-care (01) | LOC: LABOR 10:49 → OB 01-04 08:59 | PROVIDERS: PCP Family Medicine; Referring Provider Family Medicine; Visit Provider Family Medicine | DX: O35.8XX0 Maternal care for other (suspected) fetal abnormality and damage, not applicable or unspecified (principal); Z3A.39 39 weeks gestation of pregnancy | CPT/HCPCS: 59025; G0378; G0379 ==

== ENCOUNTER 2020-01-05 08:07 | Inpatient (IN) | payer OTHER, MEDICAID, SELFPAY ==
[2020-01-05] MEDS: LACTATED RINGERS 1,000 ML 100 ML IV (09:07)
[2020-01-05] MEDS: OXYTOCIN PREMIX 30 UNIT/500 ML PLAST..BAG IV (09:07)
[2020-01-05 09:20] LABS: Add Manual Diff / Slide Review NO; Basophils Absolute Auto 100 /uL (0-100); Basophils Percent Auto 1.1 % (0-2); Eosinophils Absolute Auto 0 /uL (0-450); Eosinophils Percent Auto 0.3 % (2-4); Hematocrit 37.1 % (36-46); Hemoglobin 12.5 g/dL (12.0-16.0); Lymphocytes Absolute Auto 1900 /uL (1100-4500); Lymphocytes Percent Auto 25.3 % (25-40); Mean Corpuscular HGB Conc 33.6 % (30-36); Mean Corpuscular Hemoglobin 29.8 PG (26-34); Mean Corpuscular Volume 88.4 fL (80-100); Monocytes Absolute Auto 700 /uL (0-900); Monocytes Percent Auto 9.2 % (3-14); Neutrophils Absolute Auto 4800 /uL (1500-7000); Neutrophils Percent Auto 64.1 % (50-75); Platelet Count 189 X10^3/uL (150-400); Red Cell Distribution Width 13.2 % (11.6-14.8); White Blood Cell Count 7.4 X10^3/uL (4.5-11.0)
[2020-01-05 12:19] VITALS: BP 112/80
--- NOTE | 2020-01-05 15:14 | PM.OBPRVD ---
Labor & Delivery Delivery date: 01/05/20 Intrapartal events: None Cervical ripening method: none Induction method: per pitocin protocol Delivery augmentation: pitocin Delivery monitor: external FHT and external uterine Route of delivery: L&D Laceration Description: Perineal - 1st Degree and Labial Delivery repair: chromic Estimated blood loss (mL): 200 Anesthesia type: None Complications: mild shoulder dystocia suprapubic pressure resolved Narrative: ID: 29 yo 39 and 6 7th weeks estimated gestational age who is brought in for induction due to 2 vessel cord. Otherwise patient had unremarkable . Nuchal translucency was normal and MS AFP was normal. Patient did not have sequential screen. Growth was normal and fluid normal. GBS negative. Rh positive. Status post Tdap and flu shot. Glucose tolerance test normal Stage I: 2 hours and 42 minutes Pitocin was started and patient had immediate response to this. Maximum dose was 12 milliunits of Pitocin. Patient had progressive of pain in uterine contractions and handle the pain without any difficulty. Artificial rupture membranes was contemplated but she continued to progress without this having regular uterine contractions with affective cervical change. She was found to be complete at 2:06 p.m. and wanting to push. She had spontaneous rupture membranes of clear fluid at 2:09 p.m. which was 4 minutes prior to delivery. At the time I presented she was involuntarily pushing and baby's head was starting to crown. External heart monitor was used throughout this stage with a baseline in the 120s to 130s with moderate variability, category 1 tracing. She had 1 period of decelerations when on examining her when she was 4-5 cm dilated and she was on her back for several minutes. Baby quickly recovered with good variability. No other significant decelerations were noted. External tocometer showed regular contractions every 2-3 minutes and Pitocin was turned down to 9 milliunits because of frequency of contractions. Also because of maternal discomfort. Stage II lasted 7 minutes Resulted in the normal spontaneous vaginal delivery of a viable female his weight is pending. Apgars were 7 at 1 minute 9 at 5 minutes. Baby was in the JOE presentation. There was a mild shoulder dystocia which was less than 1 minute which was reduced with getting legs back and suprapubic pressure part of this was because patient does not have epidural anesthesia and was closing her legs together after the head came out. The anterior shoulder was delivered and then quickly the posterior shoulder and body. It was necessary to put my hands under the baby's arms and p pole and still some difficulty with delivery of the abdomen. Baby was placed on mom's chest. There was mild terminal meconium. Then be baby quickly became vigorous. No additional resuscitation other than drying and stimulating were done. S stage III lasted 7 minutes Resulted in the normal spontaneous vaginal delivery of an intact small placenta with central cord insertion and 2 vessel cord present. There were no abnormalities. There were no lacerations of the cervix or the vagina. Blood loss was 200 cc. Pitocin was run in after delivery of the placenta. Patient had a superior right labial first-degree laceration that was repaired and usual fashion. There was a small first-degree perineal laceration that was repaired as well. At the time this dictation both mom and baby are doing well and are in stable condition Plan for aftercare: routine
[2020-01-05] MEDS: ACYCLOVIR 400 MG TABLET PO (21:05)
[2020-01-05] MEDS: IBUPROFEN 600 MG TABLET PO (21:05)
[2020-01-06] MEDS: IBUPROFEN 600 MG TABLET PO ×2 (05:25→11:54)
[2020-01-06] MEDS: ACYCLOVIR 400 MG TABLET PO (09:40)
[2020-01-06] MEDS: PRENATAL VIT,CALC/IRON/FOLIC 1 TABLET 1 TAB PO (09:40)
--- NOTE | 2020-01-06 14:11 | PM.OBHP.1 ---
OB HPI History of Present Condition Chief complaint: maternity Narrative: Valeri Roe is a 29 year old female presents to labor and delivery for induction due to 2 vessel cord and 39 and 6 7 weeks estimated gestational age based on LMP and 1st trimester ultrasound. EDC of 01/06/2020. Patient has had mucus discharge she states is her mucous plug. She has had intermittent uterine contractions. She has had no leaking of fluid. She has had no headache. No significant swelling Past OB history is remarkable for 1. 08/19/2011 at 36 weeks gestation normal spontaneous vaginal delivery of a viable female infant weighing 4 lb 7 oz. Her name is liz up. 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 This was in [place]. No anesthesia. 2. 06/02/2014 at 39 weeks gestation normal spontaneous vaginal delivery of a viable male weighing 6 lb 11 oz, this was in [place] as well. His name is knee on and no complications Past medical history: 1. HSV 2 Medications: Valacyclovir 40 mg daily vitamin 1 daily Allergies no known drug allergies Past surgical history unremarkable OB care was begun early on. Patient had a total of 14 visits. Patient had 49 lb weight gain. Blood pressures were good 106-120/50-74 Patient had genetic counseling and nuchal translucency was normal so she decided against 6 sequential screen. She did have the MS AFP which was normal. She had a 20 week ultrasound that was completely normal anatomy except for a 2 vessel cord. She was monitored heard with and STs once weekly starting at 32 weeks and ultrasounds for growth and fluid and no abnormalities noted. Tdap was 11/17/2019 GBS negative Glucose tolerance test 111 O-positive, antibody screen negative, rubella immune, VDRL hepatitis-B hep C chlamydia, gonorrhea, urine culture, Pap smear, HPV, HIV all normal Evaluation Evaluation Laboratory results: Laboratory Tests 01/05/20 01/05/20 08:50 08:50 WBC 7.4 RBC 4.20 Hgb 12.5 Hct 37.1 MCV 88.4 MCH 29.8 MCHC 33.6 RDW 13.2 Plt Count 189 Neut % (Auto) 64.1 Lymph % (Auto) 25.3 [place] % (Auto) 9.2 Eos % (Auto) 0.3 L Baso % (Auto) 1.1 Neut # (Auto) 4800 Lymph # (Auto) 1900 [place] # (Auto) 700 Eos # (Auto) 0 Baso # (Auto) 100 Blood Type O Positive Antibody Screen Negative PFSH Social History Smoking Status: Former smoker Meds Home Medications and Allergies Home Medications Medication Instructions Recorded Confirmed Type 1 tab DAILY 11/28/19 01/05/20 History valacyclovir 500 mg PO DAILY 11/28/19 01/05/20 History Allergies Allergy/AdvReac Type Severity Reaction Status Date / Time No Known Drug Allergies Allergy Verified 01/05/20 12:23 Exam Vital Signs (past 8 hours): Afebrile vital signs are stable HEENT unremarkable Neck: Supple without adenopathy Chest: Clear to auscultation without wheezes rhonchi or crackles Cor: Regular rate and rhythm without murmur Abdomen: Positive bowel sounds, soft, nontender, nondistended, estimated weight 7 lb, vertex presentation Extremities: No edema, DTRs intact Cervical exam 3-4 cm 80% effaced midposition, soft, bulging bag with contraction Uterine contractions every 2-3 minutes. heart tracing baseline 120s 130s with accelerations and moderate variability, category 1 tracing Objective Labs Result Diagrams: 01/05/20 08:50 Assessment and Plan Assessment and Plan Assessment and Plan narrative: 29-year-old at 3967 weeks estimated gestational age based on an EDC of 01/06/2020 based on LMP and a 7 week ultrasound. Induction for 2 vessel cord Cervix is favorable and uterus is responding to very low dose of Pitocin Patient does not want epidural and is more managing pain without any problems. GBS negative O-positive Glucose tolerance test 111 External heart monitor and tocometer.
--- NOTE | 2020-01-06 14:20 | PM.DS.1 ---
History of Present Illness History of Present Illness Chief complaint: maternity Discharge Providers Provider Date of admission: 01/05/20 08:07 Discharge Date: 01/06/20 Primary care physician: Sara Broussard MD Consults: 01/06/20 14:55 Consult to [employer] Routine Comment: Discharge provider: Elizabeth Haines MD Summary Hospital Course Discharge Diagnosis: Term status post normal spontaneous vaginal delivery without complications GBS negative mom O-positive Hospital Course: Patient was admitted to the hospital and induction performed with IV Pitocin. Patient had rapid response to Pitocin and rapid delivery. There was a very mild shoulder dystocia which was resolved with suprapubic pressure and no complications. Was less than a minute. No complications there is 200 cc of blood loss. Patient was ambulating and urinating with minimal lochia at the time of discharge. She will follow-up in the clinic for 2 week and 6 week checkup. Discharge medications Advil 600 mg 3 times a day with food [id number]. She will continue on her vitamins is on she is . She will think about what she wants to do for contraception. She will continue on her acyclovir. She will use stool softener as needed. She has used MiraLax in the past with good effect. Status at Discharge Cognitive/behavioral status at discharge: oriented Functional status at discharge: independent ambulation Overall status at discharge: patient is progressing back to baseline Time Spent with Patient Time spent: Greater than 30 minutes Objective Labs Result Diagrams: 01/05/20 08:50 Discharge Plan Discharge Plan Patient Disposition: Home Discharge orders & Medications Prescriptions: Continued valacyclovir 500 mg tablet 500 mg PO DAILY RF: 0 1 tab DAILY RF: 0 Follow up/Referrals: Sara Broussard MD [Primary Care Provider] - Diet/Activity/Treatments Activity: Routine restrictions including pelvic rest. Discussed lifting limitations. Discussed signs symptoms of infection and signs symptoms of concerning bleeding Discharge Data Primary Care Provider: Sara Broussard
[2020-01-06 14:36] VITALS: BP 112/80; PULSE 83; RESP 17; TEMP 36.8
== END 2020-01-06 15:20 | disposition home or self-care (01) | DRG 560 ==
PROVIDERS: Admitting Provider Family Medicine; PCP Family Medicine; Referring Provider Family Medicine; Visit Provider Family Medicine
DX: O69.89X0 Labor and delivery complicated by other cord complications, not applicable or unspecified (principal); O70.0 First degree perineal laceration during delivery; Z3A.39 39 weeks gestation of pregnancy; Z37.0 Single live birth; O77.0 Labor and delivery complicated by meconium in amniotic fluid; O98.32 Other infections with a predominantly sexual mode of transmission complicating childbirth; B00.9 Herpesviral infection, unspecified
CPT/HCPCS: 59050; 85025; 86850; 86900; 86901; G0379; J2590

== ENCOUNTER 2021-03-08 18:17 | Emergency (ER) | payer OTHER, MEDICAID, SELFPAY ==
[2021-03-08 18:20] VITALS: BP 116/75; PULSE 63; RESP 18; TEMP 36.7; O2SAT 99; BMI 34.1
[2021-03-08 18:52] LABS: Add Manual Diff / Slide Review NO; Basophils Absolute Auto 100 /uL (0-100); Eosinophils Absolute Auto 100 /uL (0-450); Eosinophils Percent Auto 1.7 % (2-4); Hematocrit 40.5 % (36-46); Hemoglobin 13.6 g/dL (12.0-16.0); Lymphocytes Absolute Auto 2700 /uL (1100-4500); Lymphocytes Percent Auto 30.7 % (25-40); Mean Corpuscular HGB Conc 33.7 % (30-36); Mean Corpuscular Hemoglobin 30.6 PG (26-34); Mean Corpuscular Volume 90.9 fL (80-100); Monocytes Absolute Auto 700 /uL (0-900); Monocytes Percent Auto 8.4 % (3-14); Neutrophils Absolute Auto 5100 /uL (1500-7000); Neutrophils Percent Auto 58.2 % (50-75); Platelet Count 222 X10^3/uL (150-400); Red Blood Cell Count 4.45 X10^6/uL (4.0-5.2); Red Cell Distribution Width 12.4 % (11.6-14.8); White Blood Cell Count 8.8 X10^3/uL (4.5-11.0)
[2021-03-08 18:53] LABS: Prothrombin Time 11.2 SECONDS (10.1-12.7)
[2021-03-08 18:56] LABS: PTT Partial Thromboplastin Tim 35 SECONDS (26.4-36.2)
[2021-03-08 18:57] LABS: Alanine Aminotransferase 15 IU/L (<35); Albumin 4.5 g/dL (3.5-5.0); Albumin Globulin Ratio 1.3 (1.0-2.8); Alkaline Phosphatase 113 U/L (38-126); Aspartate Aminotransferase 23 IU/L (14-36); Bilirubin Total 0.3 mg/dL (0.2-1.3); Blood Urea Nitrogen 9 mg/dL (7-17); Calcium 9.8 mg/dL (8.4-10.2); Carbon Dioxide 27 mmol/L (22-32); Chloride 103 mmol/L (98-107); Estimated Glomerular Filt Rate > 60.0 mL/min (>60); Globulin 3.4 g/dL (1.7-4.1); Glucose 90 mg/dL (70-100); HEMOLYSIS < 15 (0-50); Lipase 58 U/L (23-300); Potassium 4.1 mmol/L (3.4-5.1); Sodium 139 mmol/L (137-145); Total Protein 7.9 g/dL (6.3-8.2)
--- NOTE | 2021-03-08 20:42 | ED_ITS ---
HPI - Abdominal Pain General Chief Complaint: Abdominal Pain Stated Complaint: periodic severe stomach pain [id number] Time Seen by Provider: 03/08/21 20:42 Source: patient Mode of arrival: Ambulatory Limitations: no limitations History of Present Illness HPI narrative: Patient is a 31-year-old female who presents with right upper quadrant pain ongoing for the last month. She has taken magnesium citrate she has tried Tylenol and ibuprofen to help pain. She is occasionally associates it with. It seems to radiate around to her back not up to her shoulder. She denies any fevers or chills. Pain got a little worse today and she is concerned. MD complaint: abdominal pain Onset (ago): month(s) (1) Pain Consistency: intermittent Location: RUQ Severity: mild Quality: sharp Related Data Home Medications Medication Instructions Recorded Confirmed 1 tab DAILY 11/28/19 01/05/20 valacyclovir 500 mg PO DAILY 11/28/19 01/05/20 Previous Rx's Medication Instructions Recorded ondansetron 4 mg PO Q8H PRN #10 tab 03/08/21 Allergies Allergy/AdvReac Type Severity Reaction Status Date / Time No Known Drug Allergies Allergy Verified 03/08/21 18:19 Review of Systems Review of Systems Narrative: GENERAL: Denies chills, fatigue, malaise, fever, sweats, travel HEENT: Denies sinus pain, ear pain, sore throat, difficulty swallowing, neck pain RESPIRATORY: Denies dyspnea, cough, wheezing, hemoptysis, sputum. CARDIOVASCULAR: Denies chest pain, palpitations, orthopnea, edema GASTROINTESTINAL: See HPI : Denies dysuria, frequency, incontinence, hematuria, urinary retention, flank pain. MUSCULOSKELETAL: Denies weakness, joint pain, or bony pain SKIN: No rash, no erythema, no pruritus NEUROLOGIC: Denies weakness, dizziness, headache, numbness, change in speech, confusion PSYCHIATRIC: No concerning psychosocial issues. 12 point review of systems is negative except for those stated above and HPI Patient History Social History Smoking Status: Former smoker Smoking Status: Former smoker Substance Use Type: does not use Exam Initial Vital Signs Initial Vital Signs: Vital Signs Temperature 98.1 F 03/08/21 18:20 Pulse Rate 63 03/08/21 18:20 Respiratory Rate 18 03/08/21 18:20 Blood Pressure 116/75 03/08/21 18:20 Pulse Oximetry 99 03/08/21 18:20 GENERAL: Well-appearing, well-nourished and in no acute distress. HEENT: Head atraumatic,EOMI, pupils reactive, face symmetric, moist mucous membranes CARDIOVASCULAR: Regular rate and rhythm without murmurs, rubs or gallops. RESPIRATORY: Breath sounds equal bilaterally, no wheezes rales or rhonchi. ABDOMEN: Soft, mild right upper quadrant pain negative Muse sign no guarding no rebound : No CVA tenderness EXTREMITIES: Normal range of motion, no clubbing or edema. Neurovascularly intact NEUROLOGICAL: Alert and oriented x4.Normal gait and speech. SKIN: Warm, dry, no laceration, no petechiae, no rashes or lesions. Course Orders Ordered: ED Orders 03/08/21 18:36 Complete Blood Count AUTO DIFF Stat Comprehensive Metabolic Panel Stat Lipase Stat Partial Thromboplastin Time Stat Prothrombin Time INR Stat 03/08/21 20:46 US abdomen limited Stat Vital Signs Vital signs: Vital Signs - 8 hr 03/08/21 21:34 Pulse Rate 67 Respiratory Rate 18 Blood Pressure 115/70 Pulse Oximetry 100 MDM - Abdominal Pain Lab Data Attestation: I reviewed the patient's lab results. Result diagrams: 03/08/21 18:36 03/08/21 18:36 Labs: Lab Results 03/08/21 03/08/21 03/08/21 Range/Units 18:36 18:36 18:36 WBC 8.8 (4.5-11.0) X10^3/uL RBC 4.45 (4.0-5.2) X10^6/uL Hgb 13.6 (12.0-16.0) g/dL Hct 40.5 (36-46) % MCV 90.9 (80-100) fL MCH 30.6 (26-34) PG MCHC 33.7 (30-36) % RDW 12.4 (11.6-14.8) % Plt Count 222 (150-400) X10^3/uL Neut % (Auto) 58.2 (50-75) % Lymph % (Auto) 30.7 (25-40) % [place] % (Auto) 8.4 (3-14) % Eos % (Auto) 1.7 L (2-4) % Baso % (Auto) 1.0 (0-2) % Neut # (Auto) 5100 (6904-8088) /uL Lymph # (Auto) 2700 (6069-1922) /uL [place] # (Auto) 700 (0-900) /uL Eos # (Auto) 100 (0-450) /uL Baso # (Auto) 100 (0-100) /uL PT 11.2 (10.1-12.7) SECONDS INR 1.0 (0.9-1.3) APTT 35 (26.4-36.2) SECONDS Sodium 139 (137-145) mmol/L Potassium 4.1 (3.4-5.1) mmol/L Chloride 103 (98-107) mmol/L Carbon Dioxide 27 (22-32) mmol/L BUN 9 (7-17) mg/dL Creatinine 0.53 (0.52-1.04) mg/dL Estimated GFR > 60.0 (>60) mL/min BUN/Creatinine Ratio 17.0 (6-22) Glucose 90 (70-100) mg/dL Calcium 9.8 (8.4-10.2) mg/dL Total Bilirubin 0.3 (0.2-1.3) mg/dL AST 23 (14-36) IU/L ALT 15 (<35) IU/L Alkaline Phosphatase 113 (38-126) U/L Total Protein 7.9 (6.3-8.2) g/dL Albumin 4.5 (3.5-5.0) g/dL Globulin 3.4 (1.7-4.1) g/dL Albumin/Globulin Ratio 1.3 (1.0-2.8) Lipase 58 (23-300) U/L Point of care testing: Point of Care Testing Test Results Negative Urine Dip Bedside Urine Glucose Negative Bedside Urine Bilirubin - Negative Bedside Urine Ketone - Negative Urine Specific [place] 1.015 Bedside Urine Occult Blood - Negative Bedside Urine pH 6 Bedside Urine Protein - Negative Bedside Urine Urobilinogen - Negative Bedside Urine Nitrite - Negative Bedside Urine Leukocytes - Negative Esterase Imaging Data US - abdomen: Radiologist's Impression: PROCEDURE: US ABDOMEN LIMITED INDICATIONS: RUQ PAIN TECHNIQUE: Real-time focused scanning was performed of the abdomen, with image documentation. COMPARISON: None. FINDINGS: Liver is normal in size and homogeneous echotexture. Gallbladder is sonographically normal. No gallstones. No gallbladder wall thickening. Gallbladder wall measures 1.7 millimeters. No pericholecystic fluid. No sonographic Muse sign. Biliary tree is nondilated. Common bile duct measures 4.5 millimeters. Pancreas is sonographically normal. IMPRESSION: No sonographic evidence of cholelithiasis or cholecystitis. If there is continued clinical concern for cholecystitis, a nuclear medicine HIDA scan should be considered for further evaluation. Dictated by: Cris Carroll MD, PhD on 03/08/2021 at 21:36 MDM Narrative Medical decision making narrative: Patient has had on going abdominal pain for about 1 month. Blood work is overall reassuring she has mild right upper quadrant pain with a negative ultrasound. She overall appears well at this time I recommend she follow-up with her primary care provider she may require further testing however not indicated in the emergency department at this time. Discharge Plan Departure Patient Disposition: Home Clinical Impression: Abdominal pain Qualifiers: Abdominal location: right upper quadrant Qualified Code(s): R10.11 - Right upper quadrant pain Instructions: DI for Abdominal Pain-Adult Activity Restrictions/Additional Instructions: *You have been diagnosed with abdominal pain *What to do: At this time BLOOD WORK AND ULTRASOUND WERE OVERALL REASSURING. IF YOU CONTINUE TO HAVE PAIN AND DISCOMFORT YOU MAY NEED FURTHER TESTING SUCH A POSSIBLE HIDA SCAN WHICH CAN BE ARRANGED BY HER PRIMARY CARE PROVIDER *Continue to take medications as directed Zofran 4 mg every 8 hours needed for nausea or vomiting--> SENT TO [facility] *Follow up with your primary care provider in 2-3 days *Return to ER if you should have increasing pain, persistent vomiting, fever chills or any new, worsening or concerning symptoms Prescriptions: New ondansetron 4 mg tablet,disintegrating 4 mg PO Q8H PRN (Reason: nausea and vomiting) Qty: 10 RF: 0 No Action valacyclovir 500 mg tablet 500 mg PO DAILY RF: 0 1 tab DAILY RF: 0 Referrals: Sara Broussard MD [Primary Care Provider] -
--- NOTE | 2021-03-08 20:46 | DI.US.S_ITS ---
PROCEDURE: US ABDOMEN LIMITED INDICATIONS: RUQ PAIN TECHNIQUE: Real-time focused scanning was performed of the abdomen, with image documentation. COMPARISON: None. FINDINGS: Liver is normal in size and homogeneous echotexture. Gallbladder is sonographically normal. No gallstones. No gallbladder wall thickening. Gallbladder wall measures 1.7 millimeters. No pericholecystic fluid. No sonographic Muse sign. Biliary tree is nondilated. Common bile duct measures 4.5 millimeters. Pancreas is sonographically normal. IMPRESSION: No sonographic evidence of cholelithiasis or cholecystitis. If there is continued clinical concern for cholecystitis, a nuclear medicine HIDA scan should be considered for further evaluation. Dictated by: Cris Carroll MD, PhD on 03/08/2021 at 21:36 Approved by: Cris Carroll MD, PhD on 03/08/2021 at 21:37
[2021-03-08 21:34] VITALS: BP 115/70; PULSE 67; RESP 18; O2SAT 100
== END 2021-03-08 21:34 | disposition home or self-care (01) ==
PROVIDERS: Emergency Provider Emergency Medicine; PCP Family Medicine
DX: R10.11 Right upper quadrant pain (principal)
CPT/HCPCS: 36415; 76705; 80053; 81003; 81025; 83690; 85025; 85610; 85730; 99283; 99284

== ENCOUNTER → 2021-07-23 16:16 | Outpatient (CLI) | payer OTHER, MEDICAID, SELFPAY ==
--- NOTE | 2021-07-23 16:20 | DI.RAD.S_ITS ---
PROCEDURE: XR FOOT RT MIN 3V INDICATIONS: trauma TECHNIQUE: 3 views of the foot were acquired. COMPARISON: None. FINDINGS: Bones: No fractures or dislocations. No suspicious bony lesions. Soft tissues: No tibiotalar joint effusion. Achilles tendon appears normal. IMPRESSION: No visualized acute fracture or dislocation. However, if clinical concern and/or pain persist, short interval imaging followup in 7-10 days is recommended, as occult injury cannot be definitively excluded. Dictated by: Cristiana Gallardo M.D. on 07/23/2021 at 16:39 Approved by: Cristiana Gallardo M.D. on 07/23/2021 at 16:40
== END ==
PROVIDERS: PCP Family Medicine; Referring Provider Family Medicine; Visit Provider Family Medicine
DX: M79.674 Pain in right toe(s) (principal)
CPT/HCPCS: 73630

== ENCOUNTER → 2021-11-08 12:59 | Outpatient (CLI) | payer OTHER, MEDICAID, SELFPAY ==
--- NOTE | 2021-11-08 13:02 | DI.MRI.S_ITS ---
PROCEDURE: MR KNEE RT WO CON INDICATIONS: RT. KNEE PAIN TECHNIQUE: Noncontrast sagittal PD fast spin echo and T2 fast spin echo with fat saturation, sagittal 3-D FLASH with fat saturation; coronal T1 spin echo and PD fast spin echo with fat saturation, and axial PD fast spin echo with fat saturation through the knee. COMPARISON: None. FINDINGS: Image quality: Excellent. Menisci: The medial and lateral menisci demonstrate normal morphology and internal signal. The meniscal root ligaments appear intact. Cruciate ligaments: The anterior and posterior cruciate ligaments appear intact. Medial structures: The medial collateral ligament appears intact. Visualized portions of the pes anserinus tendons appear normal. No abnormal bursal fluid. Lateral structures: The lateral collateral ligament complex appears intact. The popliteus tendon appears normal. Iliotibial band appears normal. Anterior structures: The quadriceps and patellar tendons appear intact. Patellar alignment is normal. Lateral subluxation of the patella. No edema in the infrapatellar fat pad. Bones and cartilage: Patchy T2 hyperintense signal in the lateral aspect of the patella and trochlea with deficiency of the overlying cartilage, compatible with subchondral edema/osteochondral injury. The medial and lateral compartment hyaline cartilage is maintained with areas of signal heterogeneity. Tricompartment osteophytosis. Joint space: Small to moderate knee joint fluid. No substantial Bone's cyst. IMPRESSION: 1. Lateral subluxation of patella with osteochondral injury of the opposing articular surfaces. 2. Small to moderate joint effusion. Dictated by: Dominic Yeh M.D. on 11/10/2021 at 8:54 Approved by: Dominic Yeh M.D. on 11/10/2021 at 9:07
== END ==
PROVIDERS: PCP Family Medicine; Referring Provider Family Medicine; Visit Provider Family Medicine
DX: S83.011A Lateral subluxation of right patella, initial encounter (principal); M25.561 Pain in right knee; M25.461 Effusion, right knee
CPT/HCPCS: 73721

== ENCOUNTER 2021-11-29 13:49 | Emergency (ER) | payer OTHER, MEDICAID, SELFPAY ==
[2021-11-29 14:13] VITALS: BP 117/70; PULSE 61; RESP 16; TEMP 36.6; O2SAT 95; BMI 30.2
[2021-11-29 16:41] VITALS: BP 107/59; PULSE 69; O2SAT 99
--- NOTE | 2021-11-29 16:55 | ED_ITS ---
HPI - Extremity Problem <Gillian Ruth Israel [facility] - Last Filed: 11/29/21 20:15> General Chief complaint: Extremity Problem,Nontraumatic Stated complaint: Bone's Cyst Behind Right Knee, Post Surg Time Seen by Provider: 11/29/21 16:46 History of Present Illness HPI Narrative: 31-year-old female with complicated right knee history including previous surgery with tr- compartment osteoarthritis, lateral patellar displacement, and right knee effusion who presents to the emergency department with worsening right knee pain over the last week without any new injury. Patient states she was seen by Orthopedics 2 days ago who did not do any intervention, but they referred her to physical therapy which she has not followed up with yet. Patient had an MRI of her right knee on 11/08/2019 to which shows her patella with osteochondral injury of the opposing articular surfaces, small to moderate joint effusion with tricompartmental osteophytosis and arthritis. Patient states that she needs a right knee replacement but orthopedics does not want to do that until she is at least 49 years old. Patient states she saw Dr. Haines early in October for pain medication for this knee but she has run out. She has been taking ibuprofen at least 3 times a day, Tylenol, and is tearful about how painful her right knee is and she is not sleeping. Patient is not in a knee immobilizer, she is ambulating with a cane, and bearing weight is painful but doable. Patient denies any new trauma, any skin changes, or any new pain. Related Data Home Medications Medication Instructions Recorded Confirmed 1 tab DAILY 11/28/19 07/23/21 valacyclovir 500 mg tablet 500 mg PO DAILY 11/28/19 07/23/21 control PO 07/23/21 07/23/21 Previous Rx's Medication Instructions Recorded diclofenac sodium 3 % topical gel 1 applic TOPICAL BID PRN #100 g 11/29/21 lidocaine 5 % topical patch 1 patch TOPICAL DAILY PRN #15 ea 11/29/21 meloxicam 7.5 mg tablet (Mobic) 7.5 mg PO DAILY PRN #30 tab 11/29/21 methocarbamol 500 mg tablet 500 mg PO TID PRN #20 tab 11/29/21 omeprazole magnesium 20 mg 20 mg PO DAILY #30 tab 11/29/21 tablet,delayed release (Prilosec OTC) oxycodone-acetaminophen 5 mg-325 1 tab PO TID PRN #14 tab 11/29/21 mg tablet (Percocet) Allergies Allergy/AdvReac Type Severity Reaction Status Date / Time No Known Drug Allergies Allergy Verified 07/23/21 17:02 Review of Systems <YOKASTA Nicholas - Last Filed: 11/29/21 20:15> Review of Systems Narrative: General: denies fever, chills, malaise, sweats, fatigue Head/Neck: denies headache, neck pain, dizziness Eyes: denies visual changes, eye pain Cardio: denies chest pain, palpitations, edema Respiratory: denies dyspnea, cough, orthopnea GI: denies abdominal pain, nausea, vomiting, or diarrhea : denies dysuria, hematuria, urinary retention, frequency or incontinence MSK: right knee pain, mild swelling, no skin changes, denies muscle weakness Skin: denies rash, itching, skin lesions or other Neuro: denies numbness, tingling Patient History <YOKASTA Nicholas - Last Filed: 11/29/21 20:15> Social History Smoking Status: Former smoker Smoking Status: Former smoker Substance Use Type: does not use Exam <YOKASTA Nicholas - Last Filed: 11/29/21 20:15> Narrative Exam Narrative: Independently reviewed vitals signs and nursing notes. General: Cooperative, comfortable, in no acute distress, well developed and well groomed Head/Neck: Normal visual inspection and supple, atraumatic, no JVD or lymphadenopathy. Normal facial exam Eyes: Pupils equal round and reactive, EOMI, conjunctiva normal, no scleral icterus or injections Nose: External nose normal, nares patent, no rhinorrhea, without purulent drainage Mouth/Throat: uvula midline, moist mucus membranes Cardio: Regular rate and rhythm, no peripheral edema, warm extremities Respiratory: Normal respiratory effort, able to speak in complete sentences without audible wheezing, stridor, or rales. No retractions. GI: Abdomen soft, nontender to palpation x4 quadrants, nondistended, no masses or exquisite tenderness with exam, no flank tenderness MSK: Moves all extremities, neurovascularly intact knee with suprapatellar palpable effusion, it is mild, no erythema, ecchymosis, no palpable Bone's cyst, Sera test with hard stop, patient was fitted in a knee immobilizer, ambulating with her cane, is able to bear weight with some pain, normal range of motion Skin: Normal capillary refill, no rash Neuro: Normal speech and cognition, normal gait, A&O x3, tone normal, moves all extremities Psych: Mental status is grossly normal, speech is clear, congruent mood, normal affect Initial Vital Signs Initial Vital Signs: Vital Signs Temperature 97.8 F 11/29/21 14:13 Pulse Rate 61 11/29/21 14:13 Respiratory Rate 16 11/29/21 14:13 Blood Pressure 117/70 11/29/21 14:13 Pulse Oximetry 95 11/29/21 14:13 <Kim De La Torre DO - Last Filed: 11/30/21 14:22> Initial Vital Signs Initial Vital Signs: Vital Signs Temperature 97.8 F 11/29/21 14:13 Pulse Rate 61 11/29/21 14:13 Respiratory Rate 16 11/29/21 14:13 Blood Pressure 117/70 11/29/21 14:13 Pulse Oximetry 95 11/29/21 14:13 Procedures <YOKASTA Nicholas - Last Filed: 11/29/21 20:15> Orthopedic Splinting/Casting Injury #1: Lower Extremity Injury Location: knee Lower Extremity Immobilizer: knee immobilizer Other Orthopedic Equipment: cane Post splinting neuro exam: intact and no change Post splinting vascular exam: no change Placed by: Nursing Course <YOKASTA Nicholas - Last Filed: 11/29/21 20:15> Orders Ordered: Discontinued Medications Lidocaine (Lidocaine Patch 1 Each Adh..Patch) 1 each TOP DAILY [facility] Lidocaine (Lidocaine Patch 1 Each Adh..Patch) 1 each TOP NOW ONE Stop: 11/29/21 17:37 Last Admin: 11/29/21 17:40 Dose: 1 each Documented by: SARAHI Methocarbamol (Methocarbamol 500 Mg Tablet) 500 mg PO NOW ONE Stop: 11/29/21 17:14 Last Admin: 11/29/21 17:39 Dose: 500 mg Documented by: SARAHI Oxycodone/Acetaminophen (Oxycodone/Acetaminophen 5/325 Tablet) 1 tab PO NOW ONE Stop: 11/29/21 17:14 Last Admin: 11/29/21 17:40 Dose: 1 tab Documented by: SARAHI Vital Signs Vital signs: Vital Signs - 8 hr 11/29/21 14:13 11/29/21 16:41 11/29/21 17:50 Temperature 97.8 F 98 F Pulse Rate 61 69 78 Respiratory Rate 16 17 Blood Pressure 117/70 107/59 L 112/68 Pulse Oximetry 95 99 100 <Kim De La Torre DO - Last Filed: 11/30/21 14:22> Orders Ordered: Discontinued Medications Lidocaine (Lidocaine Patch 1 Each Adh..Patch) 1 each TOP DAILY [facility] Lidocaine (Lidocaine Patch 1 Each Adh..Patch) 1 each TOP NOW ONE Stop: 11/29/21 17:37 Last Admin: 11/29/21 17:40 Dose: 1 each Documented by: SARAHI Methocarbamol (Methocarbamol 500 Mg Tablet) 500 mg PO NOW ONE Stop: 11/29/21 17:14 Last Admin: 11/29/21 17:39 Dose: 500 mg Documented by: SARAHI Oxycodone/Acetaminophen (Oxycodone/Acetaminophen 5/325 Tablet) 1 tab PO NOW ONE Stop: 11/29/21 17:14 Last Admin: 11/29/21 17:40 Dose: 1 tab Documented by: SARAHI Vital Signs Vital signs: Vital Signs - 8 hr 11/29/21 14:13 11/29/21 16:41 11/29/21 17:50 Temperature 97.8 F 98 F Pulse Rate 61 69 78 Respiratory Rate 16 17 Blood Pressure 117/70 107/59 L 112/68 Pulse Oximetry 95 99 100 MDM - Extremity (Nontraumatic) <YOKASTA Nicholas - Last Filed: 11/29/21 20:15> Imaging Data Extremity x-ray #1: Radiologist's Impression: PROCEDURE:? MR KNEE RT WO CON ? INDICATIONS:? RT. KNEE PAIN ? TECHNIQUE:? Noncontrast sagittal PD fast spin echo and T2 fast spin echo with fat saturation, sagittal 3-D FLASH with fat saturation; coronal T1 spin echo and PD fast spin echo with fat saturation, and axial PD fast spin echo with fat saturation through the knee.? ? COMPARISON:? None. ? FINDINGS:? Image quality:? Excellent.? ? Menisci:? The medial and lateral menisci demonstrate normal morphology and internal signal.? The meniscal root ligaments appear intact.? ? Cruciate ligaments:? The anterior and posterior cruciate ligaments appear intact.? ? Medial structures:? The medial collateral ligament appears intact.? Visualized portions of the pes anserinus tendons appear normal.? No abnormal bursal fluid.? ? Lateral structures:? The lateral collateral ligament complex appears intact.? The popliteus tendon appears normal.? Iliotibial band appears normal.? ? Anterior structures:? The quadriceps and patellar tendons appear intact.? Patellar alignment is normal.? Lateral subluxation of the patella.? No edema in the infrapatellar fat pad.? ? Bones and cartilage:? Patchy T2 hyperintense signal in the lateral aspect of the patella and trochlea with deficiency of the overlying cartilage, compatible with subchondral edema/osteochondral injury.? The medial and lateral compartment hyaline cartilage is maintained with areas of signal heterogeneity.? Tricompartment osteophytosis. ? Joint space:? Small to moderate knee joint fluid.? No substantial Bone's cyst.? ? IMPRESSION:? 1. Lateral subluxation of patella with osteochondral injury of the opposing articular surfaces. 2. Small to moderate joint effusion.? ? ? Dictated by: Dominic Yeh M.D. on 11/10/2021 at 8:54 ? ? Approved by: Dominic Yeh M.D. on 11/10/2021 at 9:07 ? MDM Narrative Medical decision making narrative: 31-year-old female with history of right knee surgery and try compartment osteoarthritis of the right knee with lateral patellar subluxation with osteochondral injury of the opposing articular surfaces viewed on MRI 11/08/2021 who presents to the emergency department complaining of ongoing right knee pain, swelling, and inability to sleep due to the pain. Patient was seen by Orthopedics 3 days ago, patient states that she received a referral to physical therapy but has not had this yet, they did not do any intervention at orthopedics it did not drain her knee effusion, they did not prescribe her any pain medication. Patient states that that is what she was looking for the time because her pain has not subsided. Patient states that her primary care provider Dr. Haines provided her short course of hydrocodone which was helpful for her but she has recently run out of that. Patient has no new injury of her right knee, there is no erythema, fluctuance, skin changes, changes to her range of motion or the ability to bear weight. Patient states that she is a ambulating with a cane and this is helpful and that has not changed. Patient states that she has been taking ibuprofen 3 times a day without improvement. Patient states that she needs a total knee replacement but orthopedics won't pr oceed until she is 49. No new imaging obtained as there is no new trauma or changes in size of her right knee. She was fitted in a knee immobilizer due to her knee view chin, she was given Percocet, lidocaine patch, methocarbamol with improvement in her symptoms, she was prescribed meloxicam, Robaxin, omeprazole, topical diclofenac, and lidocaine patches and a short course of Percocet to help her with her pain. Patient understands to follow-up with Dr. Haines if she needs more pain medication or follow-up at the [facility] pain clinic for ongoing chronic pain management needs. She will go to physical therapy this week, discussed strict return precautions, pain alleviation options at home, and rest. Patient is appropriate and amenable to discharge home. Vital signs are stable on repeat examination is unremarkable. Patient has been informed of results. Patient has been given strict return to ER precautions for any new or worsening symptoms. Patient understands to follow up closely with outpatient providers as instructed. Patient understands plan and agrees to discharge home. All questions and concerns answered at this time. Discharge Plan Departure Patient Disposition: Home Clinical Impression: Effusion of knee joint right, Tricompartment osteoarthritis of right knee Instructions: DI for Osteoarthritis, DI for Knee Effusion Activity Restrictions/Additional Instructions: *You have been diagnosed with right knee effusion from your tricompartment osteoarthritis and other issues. Please follow-up with Dr. Haines and physical therapy about this. I have sent a slew of medications to [facility] for you to treat your knee pain with. Please take the omeprazole to protect her stomach from ulcer daily in the morning on an empty stomach. Please follow-up with Dr. Haines if you need ongoing long-term pain management or you may follow-up at the pain clinic, I have referred you to the [facility], you may call them and make an appointment but it may be a few months out before you get in. Please use your cane and the knee immobilizer to ambulate and try to not bear as much weight on that side until it improves. You may use ice, Tylenol, the medications I have given you but please do not combine Mobic and ibuprofen. *What to do: *Please continue to take your regular medications as directed. [ x] New medication prescriptions sent to your pharmacy: [ [facility]] [ ] New medication written as a paper prescription [ ] No new medications given *Please follow up with your primary care provider in 2-3 days, call for an appointment. Let them know you were seen in the Emergency Department and that we ask that you be seen in follow up. We will electronically transmit a record of today's note if your PCP is in our system *If you do not have a primary care provider please contact the [facility] Resource line at [phone]. They will ask some questions about your medical history and help get you set up with a doctor in the community. *Return to Emergency Department if you should have any new, worsening or concerning symptoms, such as [fever greater than 101F, chills, worsening pain, persistent vomiting or other bothersome symptoms] Prescriptions: New diclofenac sodium 3 % gel 1 applic topical BID PRN (Reason: arthritis pain) Qty: 100 0RF methocarbamol 500 mg tablet 500 mg PO TID PRN (Reason: muscle spasm) Qty: 20 0RF lidocaine 5 % adhesive patch,medicated 1 patch topical DAILY PRN (Reason: pain) Qty: 15 0RF Rx Instructions: leave on most painful area for up to 12 hrs meloxicam [Mobic] 7.5 mg tablet 7.5 mg PO DAILY PRN (Reason: pain (scale score 7-10)) Qty: 30 0RF Rx Instructions: Please take with food and water omeprazole magnesium [Prilosec OTC] 20 mg tablet,delayed release (DR/EC) 20 mg PO DAILY Qty: 30 0RF oxycodone-acetaminophen [Percocet] 5-325 mg tablet 1 tab PO TID PRN (Reason: pain) Qty: 14 0RF No Action control PO 0RF valacyclovir 500 mg tablet 500 mg PO DAILY 0RF Label Comments: TAKE 1 TABLET BY MOUTH ONCE DAILY 1 tab DAILY 0RF Referrals: [facility] [Provider Group] Cecilia Cm ARNP [Non-Staff] - (local pain management) Sara Broussard MD [Primary Care Provider] - Elizabeth Haines MD [Physician] - <Kim De La Torre DO - Last Filed: 11/30/21 14:22> Cosign ED Attending Cosignature Attestation: I was immediately available in the department for consultation. Documentation has been reviewed.
[2021-11-29] MEDS: methocarbamoL 500 MG TABLET PO (17:39)
[2021-11-29] MEDS: LIDOCAINE PATCH 1 EACH ADH..PATCH TOP (17:40)
[2021-11-29] MEDS: OXYCODONE/ACETAMINOPHEN 5/325 TABLET 1 TAB PO (17:40)
[2021-11-29 17:50] VITALS: BP 112/68; PULSE 78; RESP 17; TEMP 36.6; O2SAT 100
== END 2021-11-29 17:55 | disposition home or self-care (01) ==
PROVIDERS: Emergency Provider Nurse Practitioner Critical Care Medicine; PCP Family Medicine
DX: M17.11 Unilateral primary osteoarthritis, right knee (principal); M25.461 Effusion, right knee; S83.011A Lateral subluxation of right patella, initial encounter; X58.XXXA Exposure to other specified factors, initial encounter
CPT/HCPCS: 99283

== ENCOUNTER → 2022-02-12 17:39 | Outpatient (CLI) | payer OTHER, MEDICAID, SELFPAY ==
--- NOTE | 2022-02-12 17:44 | DI.RAD.S_ITS ---
PROCEDURE: XR CHEST 2V INDICATIONS: rule out bronchitis TECHNIQUE: 2 views of the chest were acquired. COMPARISON: None. FINDINGS: Surgical changes and devices: None. Lungs and pleura: Lungs are clear. No pleural effusions or pneumothorax. Mediastinum: Mediastinal contours are normal. Heart size is normal. Bones and chest wall: No suspicious bony abnormalities. Soft tissues appear unremarkable. IMPRESSION: No acute pulmonary process. Dictated by: Cristiana Gallardo M.D. on 02/12/2022 at 17:05 Approved by: Cristiana Gallardo M.D. on 02/12/2022 at 17:06
== END ==
PROVIDERS: PCP Family Medicine; Referring Provider Physician Assistant; Visit Provider Physician Assistant
DX: R05.8 Other specified cough (principal)
CPT/HCPCS: 71046

== ENCOUNTER → 2022-03-18 12:56 | Outpatient (ROUT) | payer OTHER, MEDICAID, SELFPAY | PROVIDERS: PCP Family Medicine; Visit Provider Family Medicine | DX: N89.8 Other specified noninflammatory disorders of vagina (principal) | CPT/HCPCS: 87070; 87205 ==